=== PATIENT | female | born 1980 | race Caucasian/White ===

== ENCOUNTER 2017-12-04 18:18 | Emergency (ER) | payer OTHER ==
[2017-12-04] MEDS ORDERED: METHYLPREDNISOLONE INJ 1000 MG VIAL IV ONE (19:05)
--- NOTE | 2017-12-04 19:14 | ER Document Report ---
ED General - General Chief Complaint: General Weakness Stated Complaint: BODY PAIN Time Seen by Provider: 12/04/17 18:59 Notes: Patient is a 37-year-old female, past medical history multiple sclerosis ( followed by Dr. Geri Bellamy at [facility]), presents with 2 weeks of tingling of bilateral face, worse on the left side, and tingling of her right arm and legs. She has had this before and feels like it is a flare of her multiple sclerosis. Her neurologist started her on 20 mg of prednisone, but she does not feel like it is helping and her symptoms are worsening. She is trying to follow-up with her neurologist, but she is out of town. Her last flare was 8 months ago and she received 5 days of 1 g of Solu-Medrol with improvement of her symptoms. She says this frequently helps her symptoms. Patient is not on any chronic MS medications. TRAVEL OUTSIDE OF THE [place] IN LAST 30 DAYS: No - Related Data Allergies/Adverse Reactions: naproxen Allergy (Verified 12/04/17 18:20) oxycodone Allergy (Verified 12/04/17 18:20) sulindac [From Clinoril] Allergy (Verified 12/04/17 18:20) hydrocodone [From Vicodin] Adverse Reaction (Verified 12/04/17 18:20) Past Medical History - General Information source: Patient - Social History Smoking Status: Never Smoker Chew tobacco use (# tins/day): No Frequency of alcohol use: Rare Drug Abuse: None Family History: Reviewed & Not Pertinent Patient has suicidal ideation: No Patient has homicidal ideation: No Pulmonary Medical History: Reports: Hx Asthma Neurological Medical History: Reports: Hx Migraine Renal/ Medical History: Denies: Hx Peritoneal Dialysis GI Medical History: Reports: Hx Gastroesophageal Reflux Disease Musculoskeltal Medical History: Reports Hx Multiple Sclerosis Psychiatric Medical History: Reports: Hx Depression Past Surgical History: Reports: Hx Breast Surgery - L breast cyst - Immunizations Hx Diphtheria, Pertussis, Tetanus Vaccination: Yes Review of Systems - Review of Systems Notes: REVIEW OF SYSTEMS: CONSTITUTIONAL: -fevers, -chills EENT: -eye pain, -difficulty swallowing, -nasal congestion CARDIOVASCULAR: -chest pain, -syncope. RESPIRATORY: -cough, -SOB GASTROINTESTINAL: -abdominal pain, -nausea, -vomiting, -diarrhea GENITOURINARY: -dysuria, -hematuria MUSCULOSKELETAL: -back pain, -neck pain SKIN: -rash or skin lesions. HEMATOLOGIC: -easy bruising or bleeding. LYMPHATIC: -swollen, enlarged glands. NEUROLOGICAL: -altered mental status or loss of consciousness, -headache, + tingling of right side of body and face PSYCHIATRIC: -anxiety, -depression. ALL OTHER SYSTEMS REVIEWED AND NEGATIVE. Physical Exam - Vital signs Vitals: Temp Pulse Resp BP Pulse Ox 98.0 F 73 16 109/78 98 12/04/17 18:29 12/04/17 18:29 12/04/17 18:29 12/04/17 18:29 12/04/17 18:29 - Notes Notes: PHYSICAL EXAMINATION: GENERAL: Well-appearing, well-nourished and in no acute distress. HEAD: Atraumatic, normocephalic. EYES: Pupils equal round and reactive to light, extraocular movements intact, sclera anicteric, conjunctiva are normal. ENT: nares patent, oropharynx clear without exudates. Moist mucous membranes. NECK: Normal range of motion, supple without lymphadenopathy LUNGS: Breath sounds clear to auscultation bilaterally and equal. No wheezes rales or rhonchi. HEART: Regular rate and rhythm without murmurs ABDOMEN: Soft, nontender, normoactive bowel sounds. No guarding, no rebound. No masses appreciated. EXTREMITIES: Normal range of motion, no pitting or edema. No cyanosis. NEUROLOGICAL: Cranial nerves grossly intact. Normal speech, normal gait. Decreased sensory of left arms and legs. Decreased sensation of the entire face. PSYCH: Normal mood, normal affect. SKIN: Warm, Dry, normal turgor, no rashes or lesions noted. Course - Re-evaluation Re-evalutation: Patient arrives with her typical MS flare symptoms. Symptoms are atypical for an acute CVA. 12/04/17 19:09 Spoke to [facility] and awaiting callback from [facility] Neurologist covering for Dr. Geri Bellamy. 12/04/17 19:[address] Lopez ([facility] Neurologist). He recommends the 3-5 days of 1000 mg IV Solumedrol to help with her MS flare. There is a case assistant at the Neurologist office that will help set up outpatient infusions. Patient said she will call the office tomorrow for this. If she is unable to set up the outpatient infusions, she will return to the ER for nurse visits for the 1,000 mg IV Solumedrol. Pt is comfortable with the plan. - Vital Signs Vital signs: Temp Pulse Resp BP Pulse Ox 98.0 F 73 16 109/78 98 12/04/17 18:29 12/04/17 18:29 12/04/17 18:29 12/04/17 18:29 12/04/17 18:29 Discharge - Discharge Clinical Impression: Acute relapsing multiple sclerosis Condition: Stable Disposition: HOME, SELF-CARE Additional Instructions: Follow-up with your neurologist for 2-4 additional days of 1,000 mg Solumedrol IV infusions. Return to the ER if you have any difficulties setting this up. Referrals: JUAN THOMSON JR, MD [Primary Care Provider] - Follow up as needed ARLINE DUPONT MD [NO LOCAL MD] - Follow up as needed
[2017-12-04 21:40] VITALS: BP 128/79
== END 2017-12-04 21:40 | disposition home or self-care (01) ==
LOC: ER 18:18
DX: G35 Multiple sclerosis (principal); R53.1 Weakness; M79.1 Myalgia; R20.2 Paresthesia of skin; Z88.6 Allergy status to analgesic agent
CPT/HCPCS: 99285; J2930; 96365

== ENCOUNTER 2018-03-10 18:14 | Emergency (ER) | payer OTHER ==
--- NOTE | 2018-03-10 20:16 | ER Document Report ---
ED Medical Screen (RME) - General Chief Complaint: Vag Bleeding, +preg <12wks Stated Complaint: VAGINAL BLEEDING Time Seen by Provider: 03/10/18 20:02 Mode of Arrival: Ambulatory Information source: Parent Notes: 38-year-old G7, P3, A3 female who is 8 weeks presents to the ED with 1 week history of vaginal bleeding. Patient says that she's been passing nickel size clots over the last 2 days. Patient states that vaginal bleeding is common for her during her pregnancies in the first trimester. Patient states that the clots are not common for her. Patient states that she has not followed up with an [employer] yet. Patient denies any nausea, vomiting, abdominal pain, dysuria, hematuria. Patient has a hx of MS and chronic pain. I have greeted and performed a rapid initial assessment of this patient. A comprehensive ED assessment and evaluation of the patient, analysis of test results and completion of the medical decision making process will be conducted by additional ED providers. PHYSICAL EXAMINATION: GENERAL: Well-appearing, well-nourished and in no acute distress. HEAD: Atraumatic, normocephalic. EYES: Pupils equal round extraocular movements intact, conjunctiva are normal. ENT: Nares patent NECK: Normal range of motion LUNGS: No respiratory distress Musculoskeletal: Normal range of motion NEUROLOGICAL: Normal speech, normal gait. PSYCH: Normal mood, normal affect. SKIN: Warm, Dry, normal turgor, no rashes or lesions noted. TRAVEL OUTSIDE OF THE [place] IN LAST 30 DAYS: No - Related Data Allergies/Adverse Reactions: naproxen Allergy (Verified 12/04/17 18:20) oxycodone Allergy (Verified 12/04/17 18:20) sulindac [From Clinoril] Allergy (Verified 12/04/17 18:20) hydrocodone [From Vicodin] Adverse Reaction (Verified 12/04/17 18:20) Past Medical History - Social History Family history: None Pulmonary Medical History: Reports: Hx Asthma Neurological Medical History: Reports: Hx Migraine Renal/ Medical History: Denies: Hx Peritoneal Dialysis GI Medical History: Reports: Hx Gastroesophageal Reflux Disease Musculoskeltal Medical History: Reports Hx Multiple Sclerosis Psychiatric Medical History: Reports: Hx Depression Past Surgical History: Reports: Hx Breast Surgery - L breast cyst - Immunizations Hx Diphtheria, Pertussis, Tetanus Vaccination: Yes Physical Exam - Vital signs Vitals: Temp Pulse Resp BP Pulse Ox 98.3 F 87 16 118/73 99 03/10/18 18:32 03/10/18 18:32 03/10/18 18:32 03/10/18 18:32 03/10/18 18:32 Course - Vital Signs Vital signs: Temp Pulse Resp BP Pulse Ox 98.3 F 87 16 118/73 99 03/10/18 18:32 03/10/18 18:32 03/10/18 18:32 03/10/18 18:32 03/10/18 18:32 Doctor's Discharge - Discharge Referrals: SOHAM ARREOLA NP [Primary Care Provider] - Follow up as needed
--- NOTE | 2018-03-10 20:31 | ER Document Report ---
ED GI/ - General Chief Complaint: Vag Bleeding, +preg <12wks Stated Complaint: VAGINAL BLEEDING Time Seen by Provider: 03/10/18 20:02 Mode of Arrival: Ambulatory Information source: Patient TRAVEL OUTSIDE OF THE [place] IN LAST 30 DAYS: No - HPI Patient complains to provider of: Vaginal bleeding Onset: Just prior to arrival Timing/Duration: Sudden Quality of pain: No pain Severity at maximum: Mild Severity in ED: Mild Pain Level: Denies Vaginal bleeding (Compared to normal period): Spotting OB ultrasound done: No vitamins taken: No Sexual history: Active Associated symptoms: None Exacerbated by: Denies Relieved by: Denies Similar symptoms previously: No Recently seen / treated by doctor: No - Related Data Allergies/Adverse Reactions: naproxen Allergy (Verified 12/04/17 18:20) oxycodone Allergy (Verified 12/04/17 18:20) sulindac [From Clinoril] Allergy (Verified 12/04/17 18:20) hydrocodone [From Vicodin] Adverse Reaction (Verified 12/04/17 18:20) Past Medical History - General Information source: Parent - Social History Smoking Status: Unknown if Ever Smoked Family History: Reviewed & Not Pertinent Pulmonary Medical History: Reports: Hx Asthma Neurological Medical History: Reports: Hx Migraine Renal/ Medical History: Denies: Hx Peritoneal Dialysis GI Medical History: Reports: Hx Gastroesophageal Reflux Disease Musculoskeletal Medical History: Reports Hx Multiple Sclerosis Psychiatric Medical History: Reports: Hx Depression Past Surgical History: Reports: Hx Breast Surgery - L breast cyst - Immunizations Hx Diphtheria, Pertussis, Tetanus Vaccination: Yes Review of Systems - Review of Systems Constitutional: No symptoms reported EENT: No symptoms reported Cardiovascular: No symptoms reported Respiratory: No symptoms reported Gastrointestinal: No symptoms reported Genitourinary: No symptoms reported Female Genitourinary: , Vaginal bleeding Musculoskeletal: No symptoms reported Skin: No symptoms reported Hematologic/Lymphatic: No symptoms reported Neurological/Psychological: No symptoms reported -: Yes All other systems reviewed and negative Physical Exam - Vital signs Vitals: Temp Pulse Resp BP Pulse Ox 98.3 F 87 16 118/73 99 03/10/18 18:32 03/10/18 18:32 03/10/18 18:32 03/10/18 18:32 03/10/18 18:32 Interpretation: Normal - General General appearance: Appears well, Alert - HEENT Head: Normocephalic, Atraumatic Eyes: Normal Pupils: PERRL - Respiratory Respiratory status: No respiratory distress Chest status: Nontender Breath sounds: Normal Chest palpation: Normal - Cardiovascular Rhythm: Regular Heart sounds: Normal auscultation Murmur: No - Abdominal Inspection: Normal Distension: No distension Bowel sounds: Normal Tenderness: Nontender Organomegaly: No organomegaly - Genitourinary External exam: Other - Patient refused pelvic exam. - Back Back: Normal, Nontender - Extremities General upper extremity: Normal inspection, Nontender, Normal color, Normal ROM , Normal temperature General lower extremity: Normal inspection, Nontender, Normal color, Normal ROM , Normal temperature, Normal weight bearing. No: Carlos's sign - Neurological Neuro grossly intact: Yes Cognition: Normal Orientation: AAOx4 [place] Coma Scale Eye Opening: Spontaneous Mary Coma Scale Verbal: Oriented Mary Coma Scale Motor: Obeys Commands Mary Coma Scale Total: 15 Speech: Normal Motor strength normal: LUE, RUE, LLE, RLE Sensory: Normal - Psychological Associated symptoms: Normal affect, Normal mood - Skin Skin Temperature: Warm Skin Moisture: Dry Skin Color: Normal Course - Vital Signs Vital signs: Temp Pulse Resp BP Pulse Ox 98.3 F 82 18 144/80 H 100 03/10/18 18:32 03/11/18 01:00 03/11/18 01:00 03/11/18 01:00 03/11/18 01:00 - Laboratory Result Diagrams: 03/10/18 20:35 03/10/18 22:31 Laboratory results interpreted by me: 03/10/18 03/10/18 03/10/18 20:35 20:35 22:31 MCH 33.9 H Beta HCG, Quant 02466.00 H Urine Blood LARGE H Ur Leukocyte Esterase TRACE H - Diagnostic Test Radiology reviewed: Image reviewed, Reports reviewed - Transfer of Care Notes: 03/11/18 03:35 Threatened miscarriage. Discharge - Discharge Clinical Impression: Threatened in first trimester, Vaginal bleeding affecting early Condition: Stable Disposition: HOME, SELF-CARE Instructions: Bleeding During Early ([facility]), Threatened Miscarriage ( [facility]), Threatened Abortions ( Patients) Additional Instructions: Please follow up with Dr Stu Aleman tomorrow morning. Return to the ED if your condition worsens. Forms: Return to Work Referrals: SOHAM ARREOLA NP [NURSE PRACTITIONER] - Follow up as needed STU VASQUEZ DO [ACTIVE STAFF] - Follow up as needed
[2018-03-10 21:00] LABS: ABSOLUTE EOSINOPHILS # (AUTO) 0.1 10^3/uL (0.0-0.6); ABSOLUTE LYMPHOCYTES (AUTO) 1.5 10^3/uL (0.5-4.7); ABSOLUTE MONOCYTES (AUTO) 0.5 10^3/uL (0.1-1.4); ABSOLUTE NEUT (AUTO) 4.3 10^3/uL (1.7-8.2); BASOPHILS % (AUTO) 0.5 % (0-2); EOSINOPHILS % (AUTO) 0.8 % (0-6); HEMATOCRIT 43.7 % (36.0-47.0); HEMOGLOBIN 15.3 g/dL (12.0-15.5); LYMPHOCYTES % (AUTO) 23.6 % (13-45); MEAN CORPUSCULAR HEMOGLOBIN 33.9 pg (27.0-33.4); MEAN CORPUSCULAR HGB CONC 35.1 g/dL (32.0-36.0); MEAN CORPUSCULAR VOLUME 97 fl (80-97); MONOCYTES % (AUTO) 8.4 % (3-13); RED BLOOD COUNT 4.52 10^6/uL (3.72-5.28); RED CELL DISTRIBUTION WIDTH 12.5 % (11.5-14.0); SEGMENTED NEUTROPHILS % (AUTO) 66.7 % (42-78); TOTAL CELLS COUNTED % (AUTO) 100 %; WHITE BLOOD COUNT 6.4 10^3/uL (4.0-10.5)
[2018-03-10 21:18] LABS: APPEARANCE,URINE SLIGHTLY-CLOUDY; BILIRUBIN,URINE NEGATIVE (NEGATIVE); COLOR,URINE STRAW; GLUCOSE, URINE NEGATIVE (NEGATIVE); KETONES,URINE NEGATIVE (NEGATIVE); LEUKOCYTE ESTERASE,URINE TRACE (NEGATIVE); NITRITE,URINE NEGATIVE (NEGATIVE); PROTEIN,URINE NEGATIVE (NEGATIVE); URINE SPECIFIC GRAVITY 1.005; UROBILINOGEN,URINE NEGATIVE mg/dL (<2.0)
[2018-03-10 21:20] LABS: PLATELET COUNT 187 10^3/uL (150-450)
--- NOTE | 2018-03-10 22:43 | RADIOLOGY REPORT (SQ) ---
EXAM DESCRIPTION: US TRANSVAGINAL COMPLETED DATE/TME: 03/10/2018 20:09 CLINICAL HISTORY: 38 years, Female, vaginal bleeding. COMPARISON: EXAM DESCRIPTION: CLINICAL HISTORY: vaginal bleeding. COMPARISON: None. FINDINGS: [ heart rate 93 bpm.] [transvaginal ] images of the pelvis were submitted. The uterus measures 82 x 55 x 47 mm, right ovary 23 x 15 x 18 mm, cervix 39 mm. Single live IUP is present. AMY 11/04/2018. EGA five weeks six days. Left ovary is not seen. No significant free fluid. Flow is seen in the right ovary. There is no sonographic evidence of ovarian torsion. There is no significant free fluid in the pelvis. IMPRESSION: Single live IUP. bradycardia. Follow-up is recommended. TECHNIQUE: LIMITATIONS: None. FINDINGS: IMPRESSION: 2010 [employer]- All Rights Reserved
[2018-03-10 22:48] LABS: INTERNATIONAL RATION (INR) 0.84; PROTHROMBIN TIME 11.9 SEC (11.4-15.4)
[2018-03-10 22:49] LABS: PARTIAL THROMBOPLASTIN TIME 26.6 SEC (23.5-35.8)
[2018-03-11 00:34] LABS: ALANINE AMINOTRANSFERASE 22 U/L (9-52); ALBUMIN 4.8 g/dL (3.5-5.0); ALKALINE PHOSPHATASE 54 U/L (38-126); ANION GAP 13 (5-19); ASPARTATE AMINO TRANSFERASE 20 U/L (14-36); BILIRUBIN,DIRECT 0.3 mg/dL (0.0-0.4); BILIRUBIN,TOTAL 0.5 mg/dL (0.2-1.3); BLOOD UREA NITROGEN 9 mg/dL (7-20); CALCIUM 10.1 mg/dL (8.4-10.2); CARBON DIOXIDE 25 mmol/L (22-30); CHLORIDE 102 mmol/L (98-107); GLUCOSE 91 mg/dL (75-110); SODIUM 139.9 mmol/L (137-145); TOTAL PROTEIN 7.8 g/dL (6.3-8.2)
[2018-03-11 01:11] VITALS: BP 144/80
== END 2018-03-11 01:13 | disposition home or self-care (01) ==
LOC: ER 18:14
DX: O20.0 Threatened abortion (principal); Z88.6 Allergy status to analgesic agent
CPT/HCPCS: 36415; 76817; 80053; 81001; 84702; 85025; 85610; 85730; 86900; 86901; 93976; 99284